=== PATIENT | female | born 1960 | race Caucasian/White ===

== ENCOUNTER 2020-10-02 10:47 | Outpatient (CLI) | payer BC | END 2020-10-02 10:48 | disposition home or self-care (01) | LOC: CSHMRI 10:47 | PROVIDERS: ATTEND Internal Medicine | DX: R46.89 Other symptoms and signs involving appearance and behavior (principal); F32.1 Major depressive disorder, single episode, moderate; I67.9 Cerebrovascular disease, unspecified | CPT/HCPCS: 70551 ==